=== PATIENT | female | born 1935 | race Two or more races ===

== ENCOUNTER 2023-11-27 12:55 | Emergency (ER) | payer OTHER, MEDICAID ==
[~2023-11-27] VITALS: Ht 167.6 cm; Wt 79.5 kg
[2023-11-27 13:30] VITALS: PULSE 82; RESP 12; O2SAT 94
[2023-11-27 14:06] LABS: Basophils # (auto) 0.1 10 ^3/uL (0-0.2); Basophils % (auto) 0.4 % (0.0-2.0); Eosinophils # (auto) 0.1 10 ^3/uL (0-0.8); Eosinophils % (auto) 0.5 % (0.0-7.0); Hematocrit 48.4 % (36.0-46.0); Hemoglobin 15.8 g/dL (12.2-16.2); Lymphocytes # (auto) 0.9 10 ^3/uL (0.4-5.4); Lymphocytes % (auto) 5.7 % (10.0-50.0); Mean Corpuscular Hemoglobin 29.6 pg (28.0-32.0); Mean Corpuscular Hgb Conc. 32.7 g/dL (32.0-36.0); Mean Corpuscular Volume 90.3 fL (80.0-100.0); Monocytes # (auto) 1.4 10 ^3/uL (0-1.3); Monocytes % (auto) 8.8 % (0.0-12.0); Neutrophils # (auto) 13.4 10 ^3/uL (1.6-8.6); Neutrophils % (auto) 84.6 % (37.0-80.0); Red Blood Cells 5.36 10^6/uL (4.0-5.20); White Blood Cell 15.8 10^3/uL (4.4-10.8)
[2023-11-27 14:34] LABS: Chloride 107 mmol/L (98-107); Potassium 4.1 mmol/L (3.5-5.1); Sodium 138 mmol/L (136-145)
[2023-11-27 14:36] LABS: Anion Gap 7 (5-15); Calcium 9.5 mg/dL (8.5-10.1); Carbon Dioxide 24 mmol/L (20-30)
[2023-11-27 14:41] LABS: BUN/Creatinine Ratio 10.8 (10.0-20.0); Blood Urea Nitrogen 11 mg/dL (9-23); Glucose 137 mg/dL (74-106)
[2023-11-27] MEDS: IOHEXOL 300 MG/ML 100ML BOTTLE IJ ONE (15:35)
[2023-11-27 15:55] LABS: Magnesium 1.9 mg/dL (1.6-2.6)
[2023-11-27] MEDS: SODIUM CHLORIDE 0.9% 500 ML IVB ONE (16:14)
[2023-11-27] MEDS: SODIUM CHLORIDE 0.9% 1,000 ML IV ONE (17:32)
[2023-11-27 19:19] LABS: Urine Bacteria FEW /hpf (None Seen); Urine Blood 2+ /uL (Negative); Urine Clarity CLOUDY (Clear); Urine Color Yellow (Yellow); Urine Mucus FEW (None Seen); Urine Protein, UAD 2+ (Negative); Urine Specific Gravity 1.022 (1.001-1.035); Urine Urobilinogen Normal (Negative); Urine WBC 1942 /hpf (0 - 5); Urine WBC Clumps PRESENT /hpf (None Seen)
[2023-11-27 19:45] VITALS: PULSE 79; RESP 16; O2SAT 96
[2023-11-27] MEDS: cefTRIAXone 1GM/50ML D5W 50 ML IV ONE (20:00)
[2023-11-27 21:47] LABS: Albumin 3.5 g/dL (3.2-4.8); Alkaline Phosphatase 79 U/L (46-116); Aspartate Aminotransferase 10 U/L (13-40); Bilirubin, Direct 0.4 mg/dL (<0.3); Bilirubin, Total 0.8 mg/dL (0.2-1.0); Total Protein 5.8 g/dL (5.7-8.2)
[2023-11-27 21:59] LABS: Alanine Aminotransferase < 9 U/L (7-40)
[2023-11-27 23:23] LABS: COVID19 ANTIGEN SOFIA FIA NEGATIVE (NEGATIVE)
[2023-11-28 02:08] VITALS: BP 128/69; PULSE 94; RESP 21; TEMP 97.9; O2SAT 94
== END 2023-11-28 02:35 | disposition short-term general hospital (02) ==
LOC: EDBD 12:55 → ER 12:55
DX: R53.1 Weakness (principal); N10 Acute pyelonephritis; N13.30 Unspecified hydronephrosis; K80.20 Calculus of gallbladder without cholecystitis without obstruction; I12.9 Hypertensive chronic kidney disease with stage 1 through stage 4 chronic kidney disease, or unspecified chronic kidney disease; N18.30 Chronic kidney disease, stage 3 unspecified; J44.9 Chronic obstructive pulmonary disease, unspecified; Z20.822 Contact with and (suspected) exposure to COVID-19
CPT/HCPCS: 36415; 71046; 74177; 80048; 80076; 81001; 83605; 83690; 83735; 84484; 85025; 87426; 93005; 96361; 96365; 99285; J0696; J7030; J7040; Q9967